=== PATIENT | female | born 1985 | race Hispanic/Latino ===

== ENCOUNTER 2018-06-15 06:58 | Day surgery (SDC) | payer OTHER ==
[2018-06-14 17:53] LABS: BASOPHILS % (AUTO) 0.6 % (0.0-5.0); EOSINOPHILS % (AUTO) 4.6 % (0.0-8.0); LYMPHOCYTES % (AUTO) 30.8 % (21.0-51.0); MEAN CORPUSCULAR HEMOGLOBIN 30.1 pg (27.0-33.0); MEAN CORPUSCULAR HGB CONC 33.2 g/dL (32.0-36.0); MEAN CORPUSCULAR VOLUME 90.6 fL (79-99); MONOCYTES % (AUTO) 8.1 % (3.0-13.0); NEUTROPHILS % (AUTO) 55.9 % (40.0-77.0); PLATELET COUNT (AUTO) 293 K/uL (130-400); RED BLOOD CELL COUNT(AUTO) 4.64 MIL/uL (4.00-5.50); RED CELL DISTRIBUTION WIDTH 12.4 % (11.0-15.5); WHITE BLOOD COUNT (AUTO) 6.8 K/uL (4.8-10.8)
[2018-06-14 17:57] VITALS: BP 128/62
[~2018-06-15] VITALS: Ht 170.2 cm; Wt 80.3 kg
[~2018-06-15 06:58] MED LIST: LACTATED RINGERS 1000ML 1,000 ML IV SCH
[2018-06-15 07:16] VITALS: BP 115/66
[2018-06-15] MEDS ORDERED: FENTANYL CITRATE PF 50 MCG/1 ML 2ML VIAL ONE (08:17)
[2018-06-15] MEDS ORDERED: PROPOFOL 10 MG/ML 20ML VIAL IV ONE (08:17)
[2018-06-15] MEDS ORDERED: LIDOCAINE PF 2% 5ML ABBOJECT ONE (08:19)
[2018-06-15] MEDS ORDERED: MIDAZOLAM HCL 1 MG/ML 2ML VIAL ONE (08:19)
[2018-06-15] MEDS ORDERED: DEXAMETHASONE SOD PHOSPHATE 10MG/ML 1ML VIAL ONE (08:42)
[2018-06-15] MEDS ORDERED: ONDANSETRON HCL 4 MG/2 ML VIAL ONE (08:42)
[2018-06-15 09:48] VITALS: BP 106/69
[2018-06-15 10:02] VITALS: BP 98/67
[2018-06-15 10:18] VITALS: BP 109/72
--- NOTE | 2018-06-15 10:35 | NUR ---
PT ARRIVED VERY EMOTIONAL, CRYING S/P PROCEDURE FROM L&D DEPARTMENT. PT WAS STABLE, OB PAD HAD SCANT AMOUNT BLEEDING. PT STATED NO VAGINAL PAIN NO DISCOMFORT. BROUGHT IN TO BEDSIDE TO COMFORT PT. POST CARE INSTRUCTIONS GIVEN TO PT AND , INSTRUCTED TO CALL DR. HERNANDEZ IF PT IS SHOWING SIGNS OF DEPRESSION OR WITHDRAWAL. BOTH STATED UNDERSTANDING OF INSTRUCTIONS. PRESCRIPTION GIVEN TO . PT DRESSED, PLACED IN WHEELCHAIR AND DRIVEN HOME BY .
== END 2018-06-15 10:35 | disposition home or self-care (01) ==
LOC: DAH 06:58
PROVIDERS: ATTEND Specialist
DX: O02.1 Missed abortion (principal); Z83.3 Family history of diabetes mellitus; Z82.49 Family history of ischemic heart disease and other diseases of the circulatory system; Z79.899 Other long term (current) drug therapy; Z98.890 Other specified postprocedural states
CPT/HCPCS: 36415; 59820; 85025; 88305; A4606; J1100; J2001; J2250; J2405; J2704; J3010; J7120 ×2

== ENCOUNTER 2018-12-10 18:01 | Emergency (ER) | payer OTHER | END 2018-12-10 20:05 | disposition home or self-care (01) | LOC: EDH 18:01 | DX: O9A.212 Injury, poisoning and certain other consequences of external causes complicating pregnancy, second trimester (principal); S39.012A Strain of muscle, fascia and tendon of lower back, initial encounter; S80.01XA Contusion of right knee, initial encounter; Z3A.16 16 weeks gestation of pregnancy; W01.198A Fall on same level from slipping, tripping and stumbling with subsequent striking against other object, initial encounter; Y93.01 Activity, walking, marching and hiking; Y92.89 Other specified places as the place of occurrence of the external cause; Y99.8 Other external cause status | CPT/HCPCS: 99281 ==